=== PATIENT | female | born 1985 | race African-American/Black ===

== ENCOUNTER 2019-04-11 17:55 | Emergency (ER) | payer SELFPAY ==
[~2019-04-11] VITALS: Ht 165.1 cm; Wt 148.0 kg
[2019-04-11] MEDS ORDERED: KETOROLAC 60MG/2ML VIAL IM ONE (22:45)
[2019-04-11 22:57] LABS: CLARITY URINE TURBID (CLEAR); COLOR URINE YELLOW (YELLOW); KETONES URINE NEGATIVE (NEGATIVE); LEUKOCYTE ESTERASE URINE NEGATIVE (NEGATIVE); NITRITE URINE NEGATIVE (NEGATIVE); OCCULT BLOOD URINE NEGATIVE (NEGATIVE); PROTEIN URINE TRACE (NEGATIVE); SPECIFIC GRAVITY URINE 1.023 (1.005-1.030); UROBILINOGEN URINE 0.2 E.U./dL (0.2-1.0)
[2019-04-12 00:20] VITALS: BP 154/87
== END 2019-04-12 00:39 | disposition home or self-care (01) ==
LOC: ER 17:55
DX: M54.5 Low back pain (principal); I10 Essential (primary) hypertension; Z76.0 Encounter for issue of repeat prescription
CPT/HCPCS: 81003; 81025; 99283; J1885

== ENCOUNTER 2019-12-01 07:56 | Emergency (ER) | payer SELFPAY ==
[~2019-12-01] VITALS: Ht 165.1 cm; Wt 149.0 kg
[2019-12-01] MEDS ORDERED: AMLODIPINE 10MG TABLET PO ONE (09:00)
[2019-12-01] MEDS ORDERED: NAPROXEN 250MG TABLET PO ONE (09:00)
[2019-12-01] MEDS ORDERED: CLONIDINE 0.1MG TABLET PO ONE (10:15)
[2019-12-01 11:29] VITALS: BP 172/119
== END 2019-12-01 11:30 | disposition home or self-care (01) ==
LOC: ER 07:56
DX: M79.10 Myalgia, unspecified site (principal); M25.561 Pain in right knee; M25.512 Pain in left shoulder; I10 Essential (primary) hypertension; F17.210 Nicotine dependence, cigarettes, uncomplicated; W01.0XXA Fall on same level from slipping, tripping and stumbling without subsequent striking against object, initial encounter; Y93.89 Activity, other specified; Y92.89 Other specified places as the place of occurrence of the external cause; Y99.8 Other external cause status
CPT/HCPCS: 73030; 73562; 81025; 99284